=== PATIENT | female | born 1960 | race Caucasian/White ===

== ENCOUNTER → 2023-07-02 14:03 | Outpatient (REF) | payer OTHER, SELFPAY | LOC: HWRAD 14:03 | PROVIDERS: ATTENDING PHYSICIAN Podiatrist Foot & Ankle Surgery; FAMILY PHYSICIAN Physician Assistant Medical; REFERRING PHYSICIAN Otolaryngology | DX: M20.11 Hallux valgus (acquired), right foot (principal); M21.622 Bunionette of left foot; C07 Malignant neoplasm of parotid gland | CPT/HCPCS: 71046; 73630 ==

== ENCOUNTER → 2023-07-29 10:27 | Outpatient (REF) | payer OTHER, SELFPAY | LOC: HWRAD 10:27 | PROVIDERS: ATTENDING PHYSICIAN Internal Medicine Rheumatology; FAMILY PHYSICIAN Physician Assistant Medical | DX: M15.0 Primary generalized (osteo)arthritis (principal) | CPT/HCPCS: 73560; 73565 ==

== ENCOUNTER 2023-12-04 08:59 | Outpatient (RCR) | payer OTHER, SELFPAY | END 2023-12-04 23:59 | disposition home or self-care (01) | LOC: RPT 08:59 | PROVIDERS: ATTENDING PHYSICIAN Nurse Practitioner Acute Care; FAMILY PHYSICIAN Physician Assistant Medical | DX: M54.2 Cervicalgia (principal); M79.622 Pain in left upper arm; M79.621 Pain in right upper arm; R68.84 Jaw pain; Z73.6 Limitation of activities due to disability; Z85.818 Personal history of malignant neoplasm of other sites of lip, oral cavity, and pharynx | CPT/HCPCS: 97010; 97110; 97140; 97162; 97535 ==

== ENCOUNTER 2023-12-18 07:59 | Outpatient (RCR) | payer OTHER, SELFPAY | END 2023-12-18 13:47 | disposition home or self-care (01) | LOC: RPT 07:59 | PROVIDERS: ATTENDING PHYSICIAN Nurse Practitioner Acute Care; FAMILY PHYSICIAN Physician Assistant Medical | DX: M54.2 Cervicalgia (principal); R68.84 Jaw pain; M79.622 Pain in left upper arm; M79.621 Pain in right upper arm; G89.29 Other chronic pain; Z85.818 Personal history of malignant neoplasm of other sites of lip, oral cavity, and pharynx | CPT/HCPCS: 97010; 97110; 97140; 97535 ==

== ENCOUNTER → 2024-04-14 14:04 | Outpatient (REF) | payer OTHER, SELFPAY | LOC: RAD 14:04 | PROVIDERS: ATTENDING PHYSICIAN Otolaryngology; FAMILY PHYSICIAN Physician Assistant Medical | DX: C07 Malignant neoplasm of parotid gland (principal) | CPT/HCPCS: 71046 ==

== ENCOUNTER → 2024-04-14 14:31 | Outpatient (REF) | payer OTHER, SELFPAY | LOC: PAVMRI 14:31 | PROVIDERS: ATTENDING PHYSICIAN Specialist; FAMILY PHYSICIAN Physician Assistant Medical | DX: K86.2 Cyst of pancreas (principal) | CPT/HCPCS: 74183; A9575 ==

== ENCOUNTER → 2024-05-11 08:17 | Outpatient (REF) | payer OTHER, SELFPAY | LOC: HWRAD 08:17 | PROVIDERS: ATTENDING PHYSICIAN Nurse Practitioner Obstetrics & Gynecology; FAMILY PHYSICIAN Physician Assistant Medical | DX: Z78.0 Asymptomatic menopausal state (principal) | CPT/HCPCS: 77080 ==

== ENCOUNTER → 2024-08-29 10:45 | Outpatient (REF) | payer OTHER, SELFPAY | LOC: DHSLP 10:45 | PROVIDERS: ATTENDING PHYSICIAN Internal Medicine Critical Care Medicine; FAMILY PHYSICIAN Physician Assistant Medical | DX: G47.30 Sleep apnea, unspecified (principal); R06.83 Snoring; G47.00 Insomnia, unspecified | CPT/HCPCS: 95800 ==

== ENCOUNTER → 2024-10-29 08:00 | Outpatient (REF) | payer OTHER, SELFPAY | LOC: DHSLP 08:00 | PROVIDERS: ATTENDING PHYSICIAN Internal Medicine Critical Care Medicine; FAMILY PHYSICIAN Physician Assistant Medical | DX: G47.00 Insomnia, unspecified (principal); G47.8 Other sleep disorders; R06.83 Snoring | CPT/HCPCS: 95810 ==